=== PATIENT | male | born 1980 | race Two or more races ===

== ENCOUNTER 2024-10-08 13:24 | Emergency (ER) | payer OTHER ==
[~2024-10-08] VITALS: Ht 177.8 cm; Wt 81.0 kg
[2024-10-08 13:25] VITALS: O2SAT 96
[2024-10-08 13:48] VITALS: BP 139/85; PULSE 72; RESP 16; TEMP 36.8; O2SAT 99
[2024-10-08] MEDS ORDERED: BUPR1FIL5 SL (14:34)
== END 2024-10-08 14:57 | disposition home or self-care (01) ==
LOC: ER 13:24
DX: Z76.0 Encounter for issue of repeat prescription (principal)
CPT/HCPCS: 99281